=== PATIENT | female | born 1995 | race Caucasian/White ===

== ENCOUNTER 2019-05-28 23:30 | Emergency (ER) | payer MEDICAID, OTHER ==
[~2019-05-28] VITALS: Ht 185.4 cm; Wt 56.0 kg
[~2019-05-28 23:30] MED LIST: CYCL-1 PO; NITR100C6 PO; NO HOME MEDS
--- NOTE | 2019-05-28 23:47 | NUR ---
XRAY AT BEDSIDE
[2019-05-29 00:50] VITALS: BP 128/62
== END 2019-05-29 00:48 | disposition home or self-care (01) ==
LOC: ER 23:31
DX: S92.512A Displaced fracture of proximal phalanx of left lesser toe(s), initial encounter for closed fracture (principal); F12.90 Cannabis use, unspecified, uncomplicated; F41.9 Anxiety disorder, unspecified; Z98.890 Other specified postprocedural states; Z79.899 Other long term (current) drug therapy; W01.0XXA Fall on same level from slipping, tripping and stumbling without subsequent striking against object, initial encounter; Y93.89 Activity, other specified; Y92.89 Other specified places as the place of occurrence of the external cause; Y99.8 Other external cause status
CPT/HCPCS: 73630; 99283

== ENCOUNTER 2020-02-23 19:22 | Emergency (ER) | payer MEDICAID ==
[~2020-02-23] VITALS: Ht 185.4 cm; Wt 61.0 kg
[2020-02-23 19:23] VITALS: BP 124/87
--- NOTE | 2020-02-23 19:36 | NUR ---
Pt screaming "someone fucking come see me." I went into the room and told her that a provider would be in soon. She told me to get out of the room she already doesn't like me. Provider Rima Branch to see patient soon.
== END 2020-02-23 20:03 | disposition left against medical advice (07) ==
LOC: ER 19:22
DX: R68.84 Jaw pain (principal); Z53.21 Procedure and treatment not carried out due to patient leaving prior to being seen by health care provider